=== PATIENT | male | born 1950 | race Native Hawaiian/Other Pacific Islander ===

== ENCOUNTER 2020-06-15 16:55 | Outpatient (CLI) | payer OTHER ==
[2020-06-15 20:41] LABS: PLATELET COUNT 296 K/uL (142-355)
[2020-06-15 21:02] LABS: POTASSIUM 5.6 mmol/L (3.6-5.2)
== END 2020-06-15 19:30 | disposition home or self-care (01) ==
LOC: LAB 16:55
PROVIDERS: ATTEND Nurse Practitioner Family
DX: Z00.00 Encounter for general adult medical examination without abnormal findings (principal); E78.49 Other hyperlipidemia; I25.10 Atherosclerotic heart disease of native coronary artery without angina pectoris; I50.9 Heart failure, unspecified; E55.9 Vitamin D deficiency, unspecified; M19.90 Unspecified osteoarthritis, unspecified site; Z79.899 Other long term (current) drug therapy; R53.83 Other fatigue; I11.0 Hypertensive heart disease with heart failure
CPT/HCPCS: 80053; 80061; 82306; 82607; 82728; 83036; 84439; 84443; 85027; G0103